=== PATIENT | male | born 1955 | race Caucasian/White ===

== ENCOUNTER 2020-06-06 20:15 | Emergency (ER) | payer MEDICARE, BC ==
[~2020-06-06] VITALS: Ht 167.6 cm; Wt 72.8 kg
[~2020-06-06 20:15] MED LIST: FLO0.4C PO; ISOS30TA6 PO; LOVA20TA2 PO; METO25TA6 PO
[2020-06-06] MEDS ORDERED: tranexamic acid 100mg/ml inj. TP ONE (21:30)
[2020-06-07] MEDS ORDERED: AMOX-117 PO (03:12)
[2020-06-07 03:34] VITALS: BP 129/82
== END 2020-06-07 03:35 | disposition home or self-care (01) ==
LOC: ER 20:15
DX: R04.0 Epistaxis (principal); Z98.890 Other specified postprocedural states; Z79.899 Other long term (current) drug therapy
CPT/HCPCS: 30901; 99285

== ENCOUNTER 2024-11-11 05:54 | Outpatient (CLI) | payer BC, MEDICARE ==
[~2024-11-11 05:54] MED LIST changes: -ISOS30TA6 PO; +ISOS30TA84 PO; +LOP25T PO; -METO25TA6 PO
== END 2024-11-11 23:59 | disposition home or self-care (01) ==
LOC: MRI02 05:54
PROVIDERS: ATTEND Family Medicine
DX: M23.91 Unspecified internal derangement of right knee (principal)
CPT/HCPCS: 73721